=== PATIENT | male | born 1995 | race Caucasian/White ===

== ENCOUNTER → 2022-04-16 | Outpatient (CLI) | payer OTHER, SELFPAY ==
[2022-04-16 17:54] LABS: Hematocrit 44.7 % (40-54); Hemoglobin 15.9 g/dL (13.0-16.5); Mean Corp Hgb Conc 35.6 g/dL (32-36); Mean Corpuscular Hgb 31.8 pg (27.0-32.0); Mean Corpuscular Volume 89.4 fL (80-94); Mean Platelet Vol. 8.9 fl (6.2-12.0); Platelet Count 239 K/mm3 (150-450); RBC Distribution Width CV 11.9 % (11.6-14.6); RBC Distribution Width SD 38.6 fl (35.1-43.9); White Blood Count 8.5 K/mm3 (4.4-11.0)
[2022-04-16 18:26] LABS: Anion Gap 6 (5-15); BUN 23 mg/dL (7-18); BUN/Creat Ratio 17.3 RATIO (10-20); Calcium,Total 8.9 mg/dL (8.5-10.1); Chloride 102 mmol/L (98-107); Creatinine, Serum 1.33 mg/dL (0.70-1.30); EST Glomerular Filtration Rate 69 mL/min (>60); Est Glom Filt Rate - Afr Amer 84 mL/min (>60); Ferritin 145 ng/mL (26-388); Glucose 78 mg/dL (74-106); Potassium 3.7 mmol/L (3.5-5.1); Sodium Level 137 mmol/L (136-145); Thyroid Stim Hormone (TSH) 1.49 uIU/mL (0.358-3.74)
== END | disposition home or self-care (01) ==
LOC: MFPLAB 16:55
PROVIDERS: Visit Provider Family Medicine
DX: G47.00 Insomnia, unspecified (principal); E55.9 Vitamin D deficiency, unspecified; Z13.1 Encounter for screening for diabetes mellitus
CPT/HCPCS: 36415; 80048; 82306; 82728; 84443; 85027

== ENCOUNTER → 2023-08-01 | Outpatient (CLI) | payer OTHER, SELFPAY ==
[2023-08-01 10:22] LABS: Absolute Lymphocyte Count 1.64 X10^3/uL (0.83-4.51); Absolute Neutrophil Count 2.6 X10^3/uL (2.0-7.7); Basophil# 0.04 X10^3/uL; Basophil% 0.8 % (0-1); Eosinophil# 0.11 X10^3/uL; Eosinophils% 2.3 % (0-5); Hematocrit 47.1 % (40-54); Hemoglobin 16.1 g/dL (13.0-16.5); Lymphocyte # 1.64 X10^3/ul (0.83-4.51); Lymphocyte % 33.8 % (19-41); Mean Corp Hgb Conc 34.2 g/dL (32-36); Mean Corpuscular Hgb 29.7 pg (27.0-32.0); Mean Corpuscular Volume 86.7 fL (80-94); Monocyte# 0.49 X10^3/uL; Monocyte% 10.1 % (0-10); NRBC Flagged by Analyzer 0 % (0-5); Neutrophil # 2.56 X10^3/uL (2.7-7.7); Neutrophil % 52.8 % (47-70); Platelet Count 255 K/mm3 (150-450); RBC Distribution Width CV 11.9 % (11.6-14.6); RBC Distribution Width SD 37.4 fl (35.1-43.9); Red Blood Count 5.43 M/mm3 (4.6-6.2); White Blood Count 4.9 K/mm3 (4.4-11.0)
[2023-08-01 10:38] LABS: Vitamin D,25 Hydroxy 61.5 ng/mL
[2023-08-01 10:44] LABS: ALB/GLOB Ratio 1.2 RATIO (0.9-2.4); AST(SGOT) 22 U/L (15-37); Alanine Aminotransfer ALT/SGPT 33 U/L (16-61); Albumin, Serum 4.1 g/dL (3.2-5.0); Alkaline Phosphatase 70 U/L (45-117); Anion Gap 4 (5-15); BUN 22 mg/dL (7-18); BUN/Creat Ratio 17.6 RATIO (10-20); Chloride 104 mmol/L (98-107); Cholesterol 190 mg/dL (200); Creatinine, Serum 1.25 mg/dL (0.70-1.30); EST Glomerular Filtration Rate 74 mL/min (>60); Est Glom Filt Rate - Afr Amer 89 mL/min (>60); Globulin 3.4 g/dL (2.2-4.2); Glucose 93 mg/dL (74-106); High Density Lipoprotein 55 mg/dL; Potassium 4.1 mmol/L (3.5-5.1); Protein, Total 7.5 g/dL (6.4-8.2); Sodium Level 137 mmol/L (136-145); Thyroid Stim Hormone (TSH) 2.33 uIU/mL (0.358-3.74); Triglycerides 91 mg/dL; Very Low Density Lipoprotein 18 mg/dL (5-40)
[2023-08-10 10:08] LABS: Testosterone, % Free 3.44 % (1.50-4.20); Testosterone, Free 17.85 ng/dL (5.00-21.00); Testosterone, Total 519 ng/dL (264-916)
== END | disposition home or self-care (01) ==
PROVIDERS: PCP Family Medicine; Referring Provider Family Medicine; Visit Provider Family Medicine
DX: Z00.00 Encounter for general adult medical examination without abnormal findings (principal); F41.1 Generalized anxiety disorder; E55.9 Vitamin D deficiency, unspecified; Z13.220 Encounter for screening for lipoid disorders; R53.1 Weakness; N28.9 Disorder of kidney and ureter, unspecified
CPT/HCPCS: 36415; 80053; 80061; 82306; 84153; 84402; 84403; 84443; 85025; G0103

== ENCOUNTER → 2025-01-27 | Outpatient (CLI) | payer OTHER, SELFPAY ==
--- OUTSIDE RECORDS SUMMARY | 2025-01-27 07:25 | XMS RPT_ITS | CCD ---
Author Organization [facility] Care Team Providers Care Channel Cementer Outsole Machine Name Role Phone EMPLOYEE, HEALTH Unavailable Unavailable EMPLOYEE, HEALTH Unavailable Unavailable EMPLOYEE, HEALTH Unavailable Unavailable HILLS, SANAZ Unavailable Unavailable PROVIDER, UNKNOWN Unavailable Unavailable LIZETH SERRANO Unavailable Unavailable LIZETH SERARNO Unavailable Unavailable LIZETH SERRANO Unavailable Unavailable HILLS, SANAZ Unavailable Unavailable PROVIDER, UNKNOWN Unavailable Unavailable Stalin Mccurdy Referring Unavailable Stalin Mccurdy Attending Unavailable Cody Torres [facility] Unavailable Results Test Name Value Interpretation Reference Range Facility Testosterone, Total / Freeon 08-10-2023 TESTOSTERONE, F 17.85 ng/dL Normal 5.00-21.00 [facility] Comment on above: Order Comment: Order Date: 07/25/23 Order Info: [id number] - TESTF N Performed By: #### L 501.9520, L500.4100, L100.0100, L500.4050, L506.1000, L3100.5310 #### [facility] [address] [place], [address] TESTOSTERONE, T 519 ng/dL Normal 264-916 [facility] Comment on above: Order Comment: Order Date: 07/25/23 Order Info: [id number] - TESTF N Result Comment: Adul t male reference interval is based on a population of healthy nonobese males (BMI <30) between 19 and 39 years old. [email or web address]. JCEM 2017,102;5822-3613. PMID: [id number]. Performed By: #### L 501.9520, L500.4100, L100.0100, L500.4050, L506.1000, L3100.5310 #### [facility] [address] [facility], [place], [id number] TESTOSTERONE,%F 3.44 Normal 1.50-4.20 [facility] Comment on above: Order Comment: Order Date: 07/25/23 Order Info: [id number] - TESTF N Result Comment: Perf ormed at: [facility] [address] [id number] Coffee Brewer: Juan Luke PhD, Phone: [phone] Performed at: [facility] [address] [id number] Coffee Brewer: Amy Holley MD, Phone: [phone] Performed By: #### L 501.9520, L500.4100, L100.0100, L500.4050, L506.1000, L3100.5310 #### [facility] [address] [facility] [place], [place], [id number] Absolute lymphocyte countOrd ered By: Stalin Mccurdy on 08-01-2023 Lymphocytes Auto (Unsp spec) [#/Vol] 1.64 10*3/uL 0.83-4.51 [facility] Basophil percentageOrdered B y: Stalin Mccurdy on 08-01-2023 Basophils/100 WBC (Bld) 0.8 % 0-1 [facility] Bilirubin [Mass/Vol] 0.70 mg/dL 0.20-1.00 [facility] Comment on above: For patients on eltr ombopag therapy, use of Dimension Pisek TBIL is not recommended. Chloride [Moles/Vol] 104 mmol/L 98-107 [facility] Cholesterol [Mass/Vol] 190 mg/dL <200 [facility] Comment on above: <200 mg/dL Desirable 200-240 mg/dL Borderline >240 mg/dL High Risk Eosinophils/100 WBC (Bld) 2.3 % 0-5 [facility] Glucose [Mass/Vol] 93 mg/dL 74-106 [facility] Neutrophils (Bld) [#/Vol] 2.6 10*3/uL 2.0-7.7 [facility] Neutrophils/100 WBC (Bld) 52.8 % 47-70 [facility] Potassium [Moles/Vol] 4.1 mmol/L 3.5-5.1 [facility] Protein [Mass/Vol] 7.5 g/dL 6.4-8.2 [facility] Sodium [Moles/Vol] 137 mmol/L 136-145 [facility] Triglyceride [Mass/Vol] 91 mg/dL <199 [facility] Comment on above: The drugs N-Acetylcy steine and Metamizole may falsely depress this assay.Serum Triglycerides Reference Interval Normal <150 mg/dL Borderline high 150 - 199 mg/dL High 200 - 499 mg/dL Very High > or = 500 mg/dL WBC (Bld) [#/Vol] 4.9 10*3/uL 4.4-11.0 [facility] Blood erythrocytes count (nu mber/volume)Ordered By: Stalin Mccurdy on 08-01-2023 RBC (Bld) [#/Vol] 5.43 10*6/uL 4.6-6.2 [facility] Blood hemoglobin measurement (mass/volume)Ordered By: Stalin Mccurdy on 08-01-2023 Hemoglobin (Bld) [Mass/Vol] 16.1 g/dL 13.0-16.5 [facility] Blood lymphocytes/100 leukoc ytesOrdered By: Stalin Mccurdy on 08-01-2023 Lymphocytes/100 WBC (Bld) 33.8 % 19-41 [facility] Blood monocytes/100 leukocyt esOrdered By: Stalin Mccurdy on 08-01-2023 Monocytes/100 WBC (Bld) 10.1 % 0-10 [facility] Blood platelet mean volumeOr dered By: Stalin Mccurdy on 08-01-2023 Platelet mean volume (Bld) [Entitic vol] 9.0 fL 6.2-12.0 [facility] CBC W/Diff, Automatedon Absolute Lymph 1.64 X10 3/uL Normal 0.83-4.51 [facility] Comment on above: Order Comment: Order Date: 07/25/23 Order Info: [id number] - CBCD Performed By: #### L 501.9520, L500.4100, L100.0100, L500.4050, L506.1000, L3100.5310 #### [facility] [address] [place], [address] Absolute Neut 2.6 X10 3/uL Normal 2.0-7.7 [facility] Comment on above: Order Comment: Order Date: 07/25/23 Order Info: 018- - CBCD Performed By: #### L 501.9520, L500.4100, L100.0100, L500.4050, L506.1000, L3100.5310 #### [facility] [address] [place], [address] Basophils/100 WBC (Bld) 0.8 % Normal 0-1 [facility] Comment on above: Order Comment: Order Date: 07/25/23 Order Info: 018- - CBCD Performed By: #### L 501.9520, L500.4100, L100.0100, L500.4050, L506.1000, L3100.5310 #### [facility] [address] [place], [address] Eosinophils/100 WBC (Bld) 2.3 % Normal 0-5 [facility] Comment on above: Order Comment: Order Date: 07/25/23 Order Info: 018- - CBCD Performed By: #### L 501.9520, L500.4100, L100.0100, L500.4050, L506.1000, L3100.5310 #### [facility] [address] [place], [address] Erythrocyte distribution width (RBC) [Ratio] 11.9 % Normal 11.6-14.6 [facility] Comment on above: Order Comment: Order Date: 07/25/23 Order Info: 018- - CBCD Performed By: #### L 501.9520, L500.4100, L100.0100, L500.4050, L506.1000, L3100.5310 #### [facility] [address] [place], [address] Hematocrit (Bld) [Volume fraction] 47.1 % Normal 40-54 [facility] Comment on above: Order Comment: Order Date: 07/25/23 Order Info: [id number] - CBCD Performed By: #### L 501.9520, L500.4100, L100.0100, L500.4050, L506.1000, L3100.5310 #### [facility] [address] [place], [address] Hemoglobin (Bld) [Mass/Vol] 16.1 g/dL Normal 13.0-16.5 [facility] Comment on above: Order Comment: Order Date: 07/25/23 Order Info: [id number] - CBCD Performed By: #### L 501.9520, L500.4100, L100.0100, L500.4050, L506.1000, L3100.5310 #### [facility] [address] [place], [address] IG% 0.200 Normal 0.0-0.9 [facility] Comment on above: Order Comment: Order Date: 07/25/23 Order Info: [id number] - CBCD Result Comment: IG% - Immature Granulocytes (promyelocytes, myelocytes and metamyelocytes) > 1% indicates that a LEFT SHIFT is Present. Performed By: #### L 501.9520, L500.4100, L100.0100, L500.4050, L506.1000, L3100.5310 #### [facility] [address] [place], [address] Lymphocytes/100 WBC (Bld) 33.8 % Normal 19-41 [facility] Comment on above: Order Comment: Order Date: 07/25/23 Order Info: 0184-1 - CBCD Performed By: #### L 501.9520, L500.4100, L100.0100, L500.4050, L506.1000, L3100.5310 #### [facility] [address] [place], [address] MCH (RBC) [Entitic mass] 29.7 pg Normal 27.0-32.0 [facility] Comment on above: Order Comment: Order Date: 07/25/23 Order Info: 0184-1 - CBCD Performed By: #### L 501.9520, L500.4100, L100.0100, L500.4050, L506.1000, L3100.5310 #### [facility] [address] [place], [address] MCHC (RBC) [Mass/Vol] 34.2 g/dL Normal 32-36 [facility] Comment on above: Order Comment: Order Date: 07/25/23 Order Info: 0184-1 - CBCD Performed By: #### L 501.9520, L500.4100, L100.0100, L500.4050, L506.1000, L3100.5310 #### [facility] [address] [facility] [place], [address] MCV (RBC) [Entitic vol] 86.7 fL Normal 80-94 [facility] Comment on above: Order Comment: Order Date: 07/25/23 Order Info: 0184-1 - CBCD Performed By: #### L 501.9520, L500.4100, L100.0100, L500.4050, L506.1000, L3100.5310 #### [facility] [address] [facility] [place], [address] Monocytes/100 WBC (Bld) 10.1 % High 0-10 [facility] Comment on above: Order Comment: Order Date: 07/25/23 Order Info: 0184- - CBCD Performed By: #### L 501.9520, L500.4100, L100.0100, L500.4050, L506.1000, L3100.5310 #### [facility] [address] [place], [address] Neutrophils/100 WBC (Bld) 52.8 % Normal 47-70 [facility] Comment on above: Order Comment: Order Date: 07/25/23 Order Info: 0184-1 - CBCD Performed By: #### L 501.9520, L500.4100, L100.0100, L500.4050, L506.1000, L3100.5310 #### [facility] [address] [place], [address] Nucleated RBC (Bld) [#/Vol] 0 10*3/uL Normal 0-5 [facility] Comment on above: Order Comment: Order Date: 07/25/23 Order Info: [id number]- - CBCD Performed By: #### L 501.9520, L500.4100, L100.0100, L500.4050, L506.1000, L3100.5310 #### [facility] [address] [place], [address] Platelet mean volume (Bld) [Entitic vol] 9.0 fL Normal 6.2-12.0 [facility] Comment on above: Order Comment: Order Date: 07/25/23 Order Info: 0184-1 - CBCD Performed By: #### L 501.9520, L500.4100, L100.0100, L500.4050, L506.1000, L3100.5310 #### [facility] [address] [place], [address] Platelets (Bld) [#/Vol] 255 10*3/uL Normal 150-450 [facility] Comment on above: Order Comment: Order Date: 07/25/23 Order Info: 0184-1 - CBCD Performed By: #### L 501.9520, L500.4100, L100.0100, L500.4050, L506.1000, L3100.5310 #### [facility] [address] [place], [address] RBC (Bld) [#/Vol] 5.43 10*6/uL Normal 4.6-6.2 [facility] Comment on above: Order Comment: Order Date: 07/25/23 Order Info: 0184-1 - CBCD Performed By: #### L 501.9520, L500.4100, L100.0100, L500.4050, L506.1000, L3100.5310 #### [facility] [address] [place], [place], [id number] RDW SD 37.4 fl Normal 35.1-43.9 [facility] Comment on above: Order Comment: Order Date: 07/25/23 Order Info: 0184- - CBCD Performed By: #### L 501.9520, L500.4100, L100.0100, L500.4050, L506.1000, L3100.5310 #### [facility] [address] [place], [place], [address] WBC (Bld) [#/Vol] 4.9 10*3/uL Normal 4.4-11.0 [facility] Comment on above: Order Comment: Order Date: 07/25/23 Order Info: 0184-1 - CBCD Performed By: #### L 501.9520, L500.4100, L100.0100, L500.4050, L506.1000, L3100.5310 #### [facility] [address] [place], [place], [id number] Comprehensive Metabolic Prof [facility] 08-01-2023 Albumin [Mass/Vol] 4.1 g/dL Normal 3.2-5.0 [facility] Comment on above: Order Comment: Order Date: 07/25/23 Order Info: [id number] - CMP Order Info: [id number] - LIPID Order Info: [id number] - TSH Order Info: [id number] - PSA Performed By: #### L 501.9520, L500.4100, L100.0100, L500.4050, L506.1000, L3100.5310 #### [facility] [address] [place], [address] Albumin/Globulin [Mass ratio] 1.2 {ratio} Normal 0.9-2.4 [facility] Comment on above: Order Comment: Order Date: 07/25/23 Order Info: 86-1 - CMP Order Info: [id number] - LIPID Order Info: [id number] - TSH Order Info: [id number] - PSA Performed By: #### L 501.9520, L500.4100, L100.0100, L500.4050, L506.1000, L3100.5310 #### [facility] [address] [place], [address] ALK P 70 U/L Normal 45-117 [facility] Comment on above: Order Comment: Order Date: 07/25/23 Order Info: [id number] - CMP Order Info: - LIPID Order Info: [id number] - TSH Order Info: [id number] - PSA Performed By: #### L 501.9520, L500.4100, L100.0100, L500.4050, L506.1000, L3100.5310 #### [facility] [address] [place], [address] ALT [Catalytic activity/Vol] 33 U/L Normal 16-61 [facility] Comment on above: Order Comment: Order Date: 07/25/23 Order Info: [id number] - CMP Order Info: - LIPID Order Info: [id number] - TSH Order Info: 285-1 - PSA Performed By: #### L 501.9520, L500.4100, L100.0100, L500.4050, L506.1000, L3100.5310 #### [facility] [address] [place], [address] AST [Catalytic activity/Vol] 22 U/L Normal 15-37 [facility] Comment on above: Order Comment: Order Date: 07/25/23 Order Info: 785-1 - CMP Order Info: [id number] - LIPID Order Info: [id number] - TSH Order Info: [id number] - PSA Performed By: #### L 501.9520, L500.4100, L100.0100, L500.4050, L506.1000, L3100.5310 #### [facility] [address] [place], [address] Bilirubin [Mass/Vol] 0.70 mg/dL Normal 0.20-1.00 [facility] Comment on above: Order Comment: Order Date: 07/25/23 Order Info: [id number] - CMP Order Info: - LIPID Order Info: [id number] - TSH Order Info: [id number] - PSA Result Comment: For patients on eltrombopag therapy, use of Dimension Pisek TBIL is not recommended. Performed By: #### L 501.9520, L500.4100, L100.0100, L500.4050, L506.1000, L3100.5310 #### [facility] [address] [place], [address] BUN/CRE 17.6 RATIO Normal 10-20 [facility] Comment on above: Order Comment: Order Date: 07/25/23 Order Info: [id number] - CMP Order Info: - LIPID Order Info: [id number] - TSH Order Info: [id number] - PSA Performed By: #### L 501.9520, L500.4100, L100.0100, L500.4050, L506.1000, L3100.5310 #### [facility] [address] [place], [address] CA,Total 9.0 mg/dL Normal 8.5-10.1 [facility] Comment on above: Order Comment: Order Date: 07/25/23 Order Info: [id number] - CMP Order Info: [id number] - LIPID Order Info: [id number] - TSH Order Info: [id number] - PSA Performed By: #### L 501.9520, L500.4100, L100.0100, L500.4050, L506.1000, L3100.5310 #### [facility] [address] [place], [address] Chloride [Moles/Vol] 104 mmol/L Normal 98-107 [facility] Comment on above: Order Comment: Order Date: 07/25/23 Order Info: [id number] - CMP Order Info: [id number] - LIPID Order Info: [id number] - TSH Order Info: [id number] - PSA Performed By: #### L 501.9520, L500.4100, L100.0100, L500.4050, L506.1000, L3100.5310 #### [facility] [address] [place], [address] CO2 [Moles/Vol] 29.0 mmol/L Normal 21.0-32.0 [facility] Comment on above: Order Comment: Order Date: 07/25/23 Order Info: 785- - CMP Order Info: - LIPID Order Info: 3 - TSH Order Info: [id number] - PSA Performed By: #### L 501.9520, L500.4100, L100.0100, L500.4050, L506.1000, L3100.5310 #### [facility] [address] [place], [address] Creatinine [Mass/Vol] 1.25 mg/dL Normal 0.70-1.30 [facility] Comment on above: Order Comment: Order Date: 07/25/23 Order Info: 785-1 - CMP Order Info: [id number] - LIPID Order Info: [id number] - TSH Order Info: [id number] - PSA Result Comment: The validity of the calculated GFR GFRAA in patients over 70 years has not been determined. Clinical correlation is essential. Performed By: #### L 501.9520, L500.4100, L100.0100, L500.4050, L506.1000, L3100.5310 #### [facility] [address] [place], [address] EST GFR - AA 89 mL/min Normal >60 [facility] Comment on above: Order Comment: Order Date: 07/25/23 Order Info: [id number] - CMP Order Info: - LIPID Order Info: [id number] - TSH Order Info: [id number] - PSA Result Comment: Afri can [place] GFR Calc Performed By: #### L 501.9520, L500.4100, L100.0100, L500.4050, L506.1000, L3100.5310 #### [facility] [address] [place], [address] GAP 4 Low 5-15 [facility] Comment on above: Order Comment: Order Date: 07/25/23 Order Info: [id number] - CMP Order Info: - LIPID Order Info: [id number] - TSH Order Info: [id number] - PSA Performed By: #### L 501.9520, L500.4100, L100.0100, L500.4050, L506.1000, L3100.5310 #### [facility] [address] [place], [address] GFR/1.73 sq M.predicted among non-blacks MDRD (S/P/Bld) [Vol rate/Area] 74 mL/min/{1.73_m2} Normal >60 [facility] Comment on above: Order Comment: Order Date: 07/25/23 Order Info: [id number] - CMP Order Info: - LIPID Order Info: [id number] - TSH Order Info: [id number] - PSA Result Comment: Non- GFR Calc Performed By: #### L 501.9520, L500.4100, L100.0100, L500.4050, L506.1000, L3100.5310 #### [facility] [address] [place], [address] Globulin (S) [Mass/Vol] 3.4 g/dL Normal 2.2-4.2 [facility] Comment on above: Order Comment: Order Date: 07/25/23 Order Info: [id number] - CMP Order Info: - LIPID Order Info: [id number] - TSH Order Info: [id number] - PSA Performed By: #### L 501.9520, L500.4100, L100.0100, L500.4050, L506.1000, L3100.5310 #### [facility] [address] [place], [address] Glucose [Mass/Vol] 93 mg/dL Normal 74-106 [facility] Comment on above: Order Comment: Order Date: 07/25/23 Order Info: [id number] - CMP Order Info: - LIPID Order Info: [id number] - TSH Order Info: [id number] - PSA Performed By: #### L 501.9520, L500.4100, L100.0100, L500.4050, L506.1000, L3100.5310 #### [facility] [address] [place], [address] Potassium [Moles/Vol] 4.1 mmol/L Normal 3.5-5.1 [facility] Comment on above: Order Comment: Order Date: 07/25/23 Order Info: [id number] - CMP Order Info: - LIPID Order Info: [id number] - TSH Order Info: 1 - PSA Performed By: #### L 501.9520, L500.4100, L100.0100, L500.4050, L506.1000, L3100.5310 #### [facility] [address] [place], [address] Sodium [Moles/Vol] 137 mmol/L Normal 136-145 [facility] Comment on above: Order Comment: Order Date: 07/25/23 Order Info: [id number] - CMP Order Info: - LIPID Order Info: [id number] - TSH Order Info: 1 - PSA Performed By: #### L 501.9520, L500.4100, L100.0100, L500.4050, L506.1000, L3100.5310 #### [facility] [address] [place], [address] T PROT 7.5 g/dL Normal 6.4-8.2 [facility] Comment on above: Order Comment: Order Date: 07/25/23 Order Info: [id number] - CMP Order Info: [id number] - LIPID Order Info: [id number] - TSH Order Info: 1 - PSA Performed By: #### L 501.9520, L500.4100, L100.0100, L500.4050, L506.1000, L3100.5310 #### [facility] [address] [place], [place], [id number] Urea nitrogen [Mass/Vol] 22 mg/dL High 7-18 [facility] Comment on above: Order Comment: Order Date: 07/25/23 Order Info: [id number]- - CMP Order Info: [id number] - LIPID Order Info: 3 - TSH Order Info: [id number] - PSA Performed By: #### L 501.9520, L500.4100, L100.0100, L500.4050, L506.1000, L3100.5310 #### [facility] [address] [place], [place], [id number] Determination of erythrocyte mean corpuscular volume (MCV)Ordered By: Stalin Mccurdy on 08-01-2023 MCV (RBC) [Entitic vol] 86.7 fL 80-94 [facility] Hematocrit Auto (Bld) [Volum e fraction]Ordered By: Stalin Mccurdy on 08-01-2023 Hematocrit (Bld) [Volume fraction] 47.1 % 40-54 [facility] - Chemistry and C hemistry - challengeOrdered By: Stalin Mccurdy on 08-01-2023 ALP [Catalytic activity/Vol] 70 U/L 45-117 [facility] ALT [Catalytic activity/Vol] 33 U/L 16-61 [facility] CO2 [Moles/Vol] 29.0 mmol/L 21.0-32.0 [facility] Globulin (S) [Mass/Vol] 3.4 g/dL 2.2-4.2 [facility] Urea nitrogen/Creatinine [Mass ratio] 17.6 mg/mg 10-20 [facility] - Hematology and Cell countsOrdered By: Stalin Mccurdy on 08-01-2023 Erythrocyte distribution width (RBC) [Entitic vol] 37.4 fL 35.1-43.9 [facility] Erythrocyte distribution width (RBC) [Ratio] 11.9 % 11.6-14.6 [facility] Immature granulocytes/100 WBC (Bld) 0.200 % 0.0-0.9 [facility] Comment on above: IG% - Immature Granu locytes (promyelocytes, myelocytes and metamyelocytes) > 1% indicates that a LEFT SHIFT is Present. MCH (RBC) [Entitic mass] 29.7 pg 27.0-32.0 [facility] Nucleated RBC/100 WBC (Bld) [Ratio] 0 % 0-5 [facility] Lipid Profileon 08-01-2023 Cholesterol [Mass/Vol] 190 mg/dL Normal 200 [facility] Comment on above: Order Comment: Order Date: 07/25/23 Order Info: [id number] - CMP Order Info: [id number] - LIPID Order Info: [id number] - TSH Order Info: [id number] - PSA Result Comment: <200 mg/dL Desirable 200-240 mg/dL Borderline >240 mg/dL High Risk Performed By: #### L 501.9520, L500.4100, L100.0100, L500.4050, L506.1000, L3100.5310 #### [facility] [address] [place], [place], [id number] Cholesterol in HDL [Mass/Vol] 55 mg/dL Normal [facility] Comment on above: Order Comment: Order Date: 07/25/23 Order Info: [id number] - CMP Order Info: [id number] - LIPID Order Info: [id number] - TSH Order Info: [id number] - PSA Result Comment: The drugs N-Acetylcysteine and Metamizole may falsely depress this assay. Reference Range HDL <40 mg/dL Low HDL Cholesterol HDL >or= 60 mg/dL High HDL Cholesterol Performed By: #### L 501.9520, L500.4100, L100.0100, L500.4050, L506.1000, L3100.5310 #### [facility] [address] [place], [address] Cholesterol in LDL [Mass/Vol] 117 mg/dL Normal 0-130 [facility] Comment on above: Order Comment: Order Date: 07/25/23 Order Info: [id number] - CMP Order Info: [id number] - LIPID Order Info: [id number] - TSH Order Info: [id number] - PSA Performed By: #### L 501.9520, L500.4100, L100.0100, L500.4050, L506.1000, L3100.5310 #### [facility] [address] [place], [address] Cholesterol in VLDL [Mass/Vol] 18 mg/dL Normal 5-40 [facility] Comment on above: Order Comment: Order Date: 07/25/23 Order Info: [id number] - CMP Order Info: - LIPID Order Info: [id number] - TSH Order Info: [id number] - PSA Performed By: #### L 501.9520, L500.4100, L100.0100, L500.4050, L506.1000, L3100.5310 #### [facility] [address] [place], [address] Triglyceride [Mass/Vol] 91 mg/dL Normal [facility] Comment on above: Order Comment: Order Date: 07/25/23 Order Info: [id number] - CMP Order Info: - LIPID Order Info: [id number] - TSH Order Info: [id number] - PSA Result Comment: The drugs N-Acetylcysteine and Metamizole may falsely depress this assay. Serum Triglycerides Reference Interval Normal <150 mg/dL Borderline high 150 - 199 mg/dL High 200 - 499 mg/dL Very High > or = 500 mg/dL Performed By: #### L 501.9520, L500.4100, L100.0100, L500.4050, L506.1000, L3100.5310 #### [facility] [address] [place], [address] MCHC Auto (RBC) [Mass/Vol]Or dered By: Stalin Mcucrdy on 08-01-2023 MCHC (RBC) [Mass/Vol] 34.2 g/dL 32-36 [facility] No Panel InformationOrdered By: Stalin Mccurdy on 08-01-2023 Estimated GFR (MDRD) Amer 89 mL/min >60 [facility] Comment on above: GFR Calc Estimated GFR (MDRD) Non-Af Amer 74 mL/min >60 [facility] Comment on above: Non- GFR Calc Prostate Specific Antigen Screen 0.50 ng/mL 0.00-4.00 [facility] Comment on above: This test was perfor med using the TPSA assay method for [employer] chemistry system. Values obtained with differentassay methods cannot be used interchangably.When changing PSA assays in the course of monitoring apatient, additional sequential testing should be carriedout to confirm baseline values. Thyroid Stimulating Hormone (TSH) 2.33 uIU/mL 0.358-3.74 [facility] Vitamin D 25-Hydroxy 61.5 ng/mL [facility] Comment on above: Vitamin D 25(OH) Sta tus Range Deficiency <20 ng/mL (50nmol/L) Insufficiency 20 - 30 ng/mL (50 - 75 nmol/L) Sufficiency 30 - 100 ng/mL (75 - 250 nmol/L) Toxicity >100 ng/mL (>250 nmol/L) PSA,Total - Annual Screenon 08-01-2023 PSA,TOT SCREEN 0.50 ng/mL Normal 0.00-4.00 [facility] Comment on above: Order Comment: Order Date: 07/25/23 Order Info: [id number] - CMP Order Info: [id number] - LIPID Order Info: [id number] - TSH Order Info: [id number] - PSA Result Comment: This test was performed using the TPSA assay method for the [employer] chemistry system. Values obtained with different assay methods cannot be used interchangably. When changing PSA assays in the course of monitoring a patient, additional sequential testing should be carried out to confirm baseline values. Performed By: #### L 501.9910 #### [facility] [address] [place], [address] Platelets bldOrdered By: Tracie Mccurdy on 08-01-2023 Platelets (Bld) [#/Vol] 255 10*3/uL 150-450 [facility] Serum or plasma albumin kayla urement (mass/volume)Ordered By: Stalin Mcucrdy on 08-01-2023 Albumin [Mass/Vol] 4.1 g/dL 3.2-5.0 [facility] Serum or plasma albumin/glob ulin mass ratioOrdered By: Stalin Mccurdy on 08-01-2023 Albumin/Globulin [Mass ratio] 1.2 {ratio} 0.9-2.4 [facility] Serum or plasma calcium kayla urement (mass/volume)Ordered By: Stalin Mccurdy on 08-01-2023 Calcium [Mass/Vol] 9.0 mg/dL 8.5-10.1 [facility] Serum or plasma cholesterol in HDL measurement (mass/volume)Ordered By: Stalin Mccurdy on 08-01-2023 Cholesterol in HDL [Mass/Vol] 55 mg/dL >40 [facility] Comment on above: The drugs N-Acetylcy steine and Metamizole may falsely depress this assay. Reference Range HDL <40 mg/dL Low HDL Cholesterol HDL >or= 60 mg/dL High HDL Cholesterol Serum or plasma cholesterol in VLDL measurement (mass/volume)Ordered By: Stalin Mccurdy on 08-01-2023 Cholesterol in VLDL [Mass/Vol] 18 mg/dL 5-40 [facility] Serum or plasma creatinine m easurement (mass/volume)Ordered By: Stalin Mccurdy on 08-01-2023 Creatinine [Mass/Vol] 1.25 mg/dL 0.70-1.30 [facility] Comment on above: The validity of the calculated GFR & GFRAA in patients over 70 years has not been determined. Clinical correlation is essential. Serum or plasma low density lipoprotein (LDL) cholesterol measurement (mass/volume)Ordered By: Stalin Mccurdy on 08-01-2023 Cholesterol in LDL [Mass/Vol] 117 mg/dL 0-130 [facility] Serum or plasma urea nitroge n measurement (mass/volume)Ordered By: Stalin Mccurdy on 08-01-2023 Urea nitrogen [Mass/Vol] 22 mg/dL 7-18 [facility] Thin prep Papanicolaou smear with manual screeningOrdered By: Stalin Mccurdy on 08-01-2023 Thin prep Papanicolaou smear with manual screening 22 U/L 15-37 [facility] Thin prep Papanicolaou smear with manual screening 4 5-15 [facility] Thyroid Stim Hormone (TSH)on 08-01-2023 TSH 2.33 uIU/mL Normal 0.358-3.74 [facility] Comment on above: Order Comment: Order Date: 07/25/23 Order Info: [id number] - CMP Order Info: [id number] - LIPID Order Info: [id number] - TSH Order Info: [id number] - PSA Performed By: #### L 501.9520, L500.4100, L100.0100, L500.4050, L506.1000, L3100.5310 #### [facility] [address] [place], [place], [id number] Vitamin D,25 Hydroxyon 08-01 Vitamin D 25-OH 61.5 ng/mL Normal [facility] Comment on above: Order Comment: Order Date: 07/25/23 Order Info: [id number] - VITD25 Result Comment: Chelsey min D 25(OH) Status Range Deficiency <20 ng/mL (50nmol/L) Insufficiency 20 - 30 ng/mL (50 - 75 nmol/L) Sufficiency 30 - 100 ng/mL (75 - 250 nmol/L) Toxicity >100 ng/mL (>250 nmol/L) Performed By: #### L 501.9520, L500.4100, L100.0100, L500.4050, L506.1000, L3100.5310 #### [facility] [address] [place], [place], [id number] LUMBO SACRAL COMPLETE MIN 4 VIEWSon 04-05-2017 [facility] [address] [place], [place] [address] Patient: SHAILA HILL Phone#: : 1995 Age: 21 Gender: M Pt. Type: Out Account: [id number] Location: Ordering: LIZETH SERRANO Exam Date: 04/05/2017/9:53 Family Phys: SANAZ SANDERS Charge Code: 812798 Physician: Cayey Order #: [id number] DLP Dose#: PROCEDURE: X-RAY LUMBAR SPINE COMPLETE MIN 4 VIEWS COMPARISON: None. INDICATIONS: Low back pain FINDINGS: BONES: Normal. No significant spondylosis, scoliosis, fracture, or visible bony lesion. DISC SPACES: Normal. No significant disc height narrowing, subluxation, or endplate abnormality. PARASPINOUS: Negative. No paraspinous abnormality is seen. OTHER: Negative. CONCLUSION: No acute disease. Dictated by: Anna Polo MD on 04/05/2017 at 10:14 Approved by: Anna Polo MD on 04/05/2017 at 10:14 Normal [facility] MMR PROFILEon 02-23-2017 MMR PROFILE Normal [facility] Comment on above: Result Comment: _MMR PROFILE_MMR (IGG) PANEL (MEASLES, MUMPS, RUBELLA)Reported: 02/23/2017 09:23 Status=F TEST RESULT FLAG RANGE UNITS MEASLES ANTIBODY (IGG) 134.00 >29.99 AU/mL 02/23/17.rfl.COMPLETE.AMRR .5244-9AU/mL Interpretation===== <25.00 Zgtpevle83.00 - 29.99 Equivocal>29.99 PositiveA positive result indicates that the patient hasantibody to measles virus. It does not differentiatebetween an active or past infection. The clinicaldiagnosis must be interpreted in conjunction withclinical signs and symptoms of the patient.MUMPS VIRUS ANTIBODY 83.50 >10.99 AU/mL 02/23/17.rfl.COMPLETE.AMRR .90339-1(IGG) AU/mL Interpretation < 9.00 Negative 9.00 - 10.99 Equivocal > 10.99 PositiveA positive result indicates that the patient hasantibody to Mumps Virus. It does not differentiatebetween an active or past infection. The clinicaldiagnosis must be interpreted in conjunction withthe clinical signs and symptoms of the patient.RUBELLA ANTIBODY (IGG) 3.37 >=1.00 Index 02/23/17.rfl.COMPLETE.AMRR .5334-8INDEX INTERPRETATION < 0.90 Not consistent with Immunity0.90 - 0.99 Equivocal> or = 1.00 Consistent with ImmunityThe presence of Rubella IgG antibody suggestsimmunization or past or current infection withRubella virus.Test Performed by [employer] [facility],[address] [place] [id number] He M.D., Ph.D., Director of [phone], [facility] [id number] Performed By: #### 2 50589 ####[facility],[address] [place] [address] NICOTINE AND METABOLITE SERU [facility] 02-23-2017 NICOTINE AND METABOLITE SERUM Normal [facility] Comment on above: Result Comment: _NIC OTINE AND METABOLITE_NICOTINE AND EXPANDED METABOLITES, LC/MS/MS, S/PReported: 02/23/2017 14:10 Status=F TEST RESULT FLAG RANGE UNITS NICOTINE, SERUM/PLASMA <2 ng/mL 02/23/17.rfl.COMPLETE.AMRR .3853-9COTININE, SERUM/PLASMA <2 ng/mL 02/23/17142.rfl.COMPLETE.AMRR .62915-80-WJ-XBRZZJTL, <2 ng/mL 02/23/17.rfl.COMPLETE.AMRR .84019-3VLHYE/PLASMAIndividuals exposed to second hand or passive tobaccosmoke may demonstrate concentrations of nicotine andmetabolites greater than those indicated for non-smokers.Reference Ranges: Active Non-Smoker Tobacco User (ng/mL) (ng/mL) Nicotine <4 2-10 Cotinine <8 16-145 0-GC-Rudrnnkx <2 100-500Test Performed by [employer] [facility],[address] [place] [address] [id number] He M.D., Ph.D., Director of [phone], [facility] [id number] Performed By: #### 2 34579 ####[facility],[address] [place] [address] HEP B SURF AB QUANT [QUEST]o n 02-22-2017 HEP B SURF AB QUANT [QUEST] Normal [facility] Comment on above: Result Comment: _HEP B SURF AB QUANT_HEPATITIS B SURFACE ANTIBODY IMMUNITY, (QUANT)Reported: 02/22/2017 14:36 Status=F TEST RESULT FLAG RANGE UNITS HEP B SURF AB IMMUNITY,QN <5 L >=10 mIU/mL 02/22/17.1449.rfl.COMPLETE.AMRR .5193-8PATIENT DOES NOT HAVE IMMUNITY TO HEPATITIS B VIRUS.For more information on this test, go to:http://education.[employer]/faq/FGW529Papb Performed by [employer],[facility],[address] [place] [id number] He M.D., Ph.D., Director of [phone], [place] [id number] Performed By: #### 2 57098 ####[place] [id number] DRUG SCREEN URINE MEDICon B-DIAZEPINES Negative Normal [facility] Comment on above: Performed By: #### 2 87906 ####[address] [address] BARBITURATES Negative Normal [facility] Comment on above: Performed By: #### 2 25092 ####[place] [id number] DRUG SCREEN URINE MEDIC Normal [facility] Comment on above: Result Comment: DRUG SCREEN - URINE Performed By: #### 2 56006 ####[facility],[address] [place] [address],[place] [address] PCP Negative Normal [facility] Comment on above: Performed By: #### 2 38993 ####[facility],[address] [facility],[place] [address] TCA Negative Normal [facility] Comment on above: Performed By: #### 2 32714 ####[facility],[address] [place] [address],[facility] [address] THC Negative Normal [facility] Comment on above: Result Comment: MANAV ENTS RECEIVING PROTON PUMP INHIBITORS MAY DEMONSTRATE FALSE POSITIVETHC/CANNABINOID RESULTS. AN ALTERNATIVE CONFIRMATORY METHOD SHOULD BE CONSIDEREDTO VERIFY POSITIVE RESULTS. Performed By: #### 2 78232 ####[facility],[address] [place] [address],[place] [address] Urine, amphetamines presence Negative Normal [facility] Comment on above: Performed By: #### 2 95467 ####[facility],[address] [place] [address],[place] [address] Urine, cocaine presence Negative Normal [facility] Comment on above: Performed By: #### 2 35603 ####[facility],[address] [place] [address],[place] [address] Urine, methadone presence Negative Normal [facility] Comment on above: Performed By: #### 2 48835 ####[facility],[address] [place] [address] [place] [address] Urine, opiates presence Negative Normal [facility] Comment on above: Performed By: #### 2 34340 ####[facility],[address] [place] [address] GLUCOSEon 02-21-2017 Glucose mass conc 84 mg/dL Normal 74 - 106 [facility] Comment on above: Performed By: #### 2 89148 ####[facility],[address] [place] [address] LIPID PROFILEon 02-21-2017 Cholesterol 137 mg/dL Normal 0 - 200 [facility] Comment on above: Performed By: #### 2 33104 ####[facility],[address] [place] [address] Cholesterol to HDL Ratio 2.5 {ratio} Normal 0.0 - 5.0 [facility] Comment on above: Performed By: #### 2 64940 ####[facility],[address] [place] [address] HDL Cholesterol 54 mg/dL Normal 40 - 60 [facility] Comment on above: Performed By: #### 2 26276 ####[facility],[address] [place] [address] LDL Cholesterol 71 mg/dl Normal 0 - 129 [facility] Comment on above: Performed By: #### 2 96102 ####[facility],[address] [place] [address] LIPID PROFILE Normal [facility] Comment on above: Result Comment: LIPI D PROFILE Performed By: #### 2 53510 ####[facility],[address] [place], [place] [id number] Triglyceride 62 mg/dL Normal 0 - 150 [facility] Comment on above: Performed By: #### 2 33712 ####[facility],[address] [place], [place] [id number] Encounters Encounter Date Encounter Type Care Provider Facility Start: 08-07-2023 Encounter for genera l adult medical examination without abnormal findings [facility] Start: 08-01-2023 End: 08-01-2023 ambulatory [facility] Work Phone: Start: 08-01-2023 End: 08-01-2023 Patient encounter procedure [facility] [place] Work Phone: Start: 04-05-2017 End: 04-05-2017 Ambulatory [facility] Start: 02-21-2017 End: 02-21-[address] Galdino Varela [facility] Plan of Treatment Date Care Activity Detail Author Testosterone Free [M ass/volume] in Serum or Plasma [facility] Testosterone measurement [facility] Payers Date Payer Category Payer Self-pay 2023 Unknown [id number] Unknown [id number] Unknown [facility] [id number] Unknown [id number] Social History Date Type Detail Facility [place] [facility] [place] if ever smoked [facility] Work Phone: Start: 1995 Sex Assigned At Male [facility] Evaluation note Note Date & Type Note Facility Evaluation note No assessment information availa ble [facility] Work Phone: Summary Purpose Family History No Family History Records FoundNo Family History Records Found Advance Directives No Advanced Directives Records FoundNo Advanced Directives Records Found Chief Complaint and Reason for Visit Chief Complaint EORDER Additional Source Comments (unrecognized sect ion and content) No Status Records FoundNo Status Records Found INFORMATION SOURCE (unrecogn ized section and content) DATE CREATED AUTHOR 02/19/2018 Galdino Varela [facility] DATE CREATED AUTHOR AUTHOR'S ORGANIZ ATION 08/12/2023 [facility] Care Teams (unrecognized sec tion and content) Team Status: Active Member Role Status Dates Dr. Cody Torres MD Primary Care Provider Activ e Team Status: Inactive Member Role Status Dates Dr. Cody Torres MD Primary Care Provider Activ e Stalin Mccurdy MD Attending Provider, Referring Provide r Active Goals (unrecognized section and content) Goals may be documented in a n alternate section FOR RECORDS PERTAINING TO PATIENTS WHO ARE OR HAVE BEEN ENROLLED IN A CHEMICAL DEPENDENCY/SUBSTANCEABUSE PROGRAM, SOME INFORMATION MAY BE OMITTED. This clinical summary was aggregated from multiple sources. Caution should be exercised in using it in the provision of clinical care. This summary normalizes information from multiple sources, and as a consequence, information in this document may materially change the coding, format and clinical context of patient data. In addition, data may be omitted in some cases. CLINICAL DECISIONS SHOULD BE BASED ON THE PRIMARY CLINICAL RECORDS. [employer] [facility]. provides no warranty or guarantee of the accuracy or completeness of information in this document.
[2025-01-27 10:34] LABS: Anion Gap 11 (5-15); BUN 21 mg/dL (4-19); BUN/Creat Ratio 16.7 RATIO (10-20); Calcium,Total 9.5 mg/dL (7.6-11.0); Carbon Dioxide 26.7 mmol/L (21.0-32.0); Chloride 101 mmol/L (98-108); Cholesterol 177 mg/dL (<=200); Creatinine, Serum 1.28 mg/dL (0.70-1.20); EST Glomerular Filtration Rate 78 (>60); Glucose 92 mg/dL (70-99); High Density Lipoprotein 54 mg/dL; Low Density Lipoprotein Calc. 106 mg/dL; Potassium 4.4 mmol/L (3.3-5.1); Sodium Level 139 mmol/L (133-145); Triglycerides 87 mg/dL; Very Low Density Lipoprotein 17 mg/dL (5-40); cholesterol:hdl ratio screen 3.29
== END | disposition home or self-care (01) ==
LOC: MTLAB 07:23
PROVIDERS: PCP Family Medicine; Referring Provider Family Medicine; Visit Provider Family Medicine
DX: Z13.220 Encounter for screening for lipoid disorders (principal); Z13.1 Encounter for screening for diabetes mellitus
CPT/HCPCS: 36415; 80048; 80061